=== PATIENT | female | born 1950 | race African-American/Black ===

== ENCOUNTER 2018-06-28 11:30 | Emergency (ER) | payer BC, OTHER ==
[~2018-06-28] VITALS: Ht 157.5 cm; Wt 91.0 kg
[2018-06-28 11:32] VITALS: BP 176/72
== END 2018-06-28 12:53 | disposition left against medical advice (07) ==
LOC: ER 11:30
DX: R51 Headache (principal); Z53.21 Procedure and treatment not carried out due to patient leaving prior to being seen by health care provider